=== PATIENT | male | born 1950 | race Caucasian/White ===

== ENCOUNTER 2019-03-29 06:05 | Day surgery (SDC) | payer MEDICARE, OTHER ==
[2019-03-29] MEDS: CEFAZOLIN 2 GM/50 ML (PMX) 50 ML IVPB (06:30)
[2019-03-29] MEDS: ACETAMINOPHEN 500 MG TAB PO (07:05)
[2019-03-29] MEDS ORDERED: PROPOFOL 40 ML ×2 (07:21→08:03)
[2019-03-29] MEDS ORDERED: LIDOCAINE 2% (SDV) 5 ML INJ (07:21)
[2019-03-29] MEDS ORDERED: FENTAnyl 50 MCG/ML VIAL (07:21)
[2019-03-29] MEDS ORDERED: CEFAZOLIN 1 GM INJ (07:21)
[2019-03-29] MEDS ORDERED: MIDAZOLAM 1 MG/ML 2 ML INJ (07:22)
[2019-03-29] MEDS ORDERED: METOCLOPRAMIDE 10 MG INJ (07:24)
[2019-03-29] MEDS: LACTATED RINGER'S 1,000 ML IV (07:29)
[2019-03-29] MEDS ORDERED: LABETALOL HCL 20MG INJ IV (07:30)
[2019-03-29] MEDS ORDERED: FENTAnyl 50 MCG/ML VIAL IV ×2 (07:30)
[2019-03-29] MEDS ORDERED: ALBUTEROL 0.083% (NEB) 2.5 MG/3 ML AMP HHN (07:30)
[2019-03-29] MEDS ORDERED: ONDANSETRON 4 MG INJ IV (07:30)
[2019-03-29] MEDS ORDERED: morphine 2 MG INJ IV ×2 (07:30)
[2019-03-29] MEDS ORDERED: EPHEDrine 25 MG/5 ML SYG IV (07:30)
[2019-03-29] MEDS ORDERED: DIPHENHYDRAMINE 50 MG INJ IV (07:30)
[2019-03-29] MEDS ORDERED: MEPERIDINE 25 MG INJ IV (07:30)
[2019-03-29] MEDS ORDERED: OXYCODONE/ACETAMINOPHEN (5/325) TAB PO ×2 (07:30)
[2019-03-29] MEDS ORDERED: HYDROmorphONE 1 MG/5 ML IV SYRINGE IV ×3 (07:30)
[2019-03-29] MEDS ORDERED: hydrALAzine 20 MG INJ IV (07:30)
[2019-03-29] MEDS: BUPIVACAINE 0.5% (SDV) 30 ML INJ (07:31)
[2019-03-29] MEDS: LIDOCAINE 2% (MDV) 20 ML INJ (07:31)
[2019-03-29] MEDS: POLYMYXIN/BACITRACIN 1L IRRIG (07:32)
[2019-03-29] MEDS ORDERED: PHENYLephrine (100 MCG/ML) 10ML SYG ×2 (07:59→08:25)
[2019-03-29] MEDS ORDERED: LIDOCAINE 2% (MDV) 20 ML INJ (08:22)
[2019-03-29] MEDS ORDERED: EPHEDrine 25 MG/5 ML SYG (08:48)
[2019-03-29] MEDS ORDERED: BUPIVACAINE 0.5% (SDV) 30 ML INJ (08:51)
== END 2019-03-29 10:51 | disposition home or self-care (01) ==
LOC: SDS 06:05
DX: M19.072 Primary osteoarthritis, left ankle and foot (principal); M20.22 Hallux rigidus, left foot; M89.9 Disorder of bone, unspecified; I10 Essential (primary) hypertension; K21.9 Gastro-esophageal reflux disease without esophagitis; E78.5 Hyperlipidemia, unspecified; J44.9 Chronic obstructive pulmonary disease, unspecified
CPT/HCPCS: 28104; 73630-LT; 88304